=== PATIENT | female | born 1955 | race Caucasian/White ===

== ENCOUNTER 2016-12-11 23:19 | Emergency (ER) | payer BC ==
[2016-12-11 23:23] VITALS: BP 132/69; PULSE 82; TEMP 98; BMI 30.9
--- NOTE | 2016-12-11 23:40 | PDOC ---
History of Present Illness - General Chief Complaint: Foreign Body (FB) Stated Complaint: "I STEPPED ON A PATRICA PIN" Time Seen by Provider: 12/11/16 23:23 - History of Present Illness Initial Comments: This 61-year-old woman, otherwise healthy, presents with puncture wound to the plantar aspect of her left foot. The patient was ending her vacation in [place] earlier today when she stepped on a "patrica pin", that was positioned upright in the carpet of her hotel room. Patient was barefoot as she came out of the bathroom when she stepped on the pin. The pin was lodged in her skin but she was able to remove it intact. She then returned home by airplane. This evening, she thought that her foot appeared somewhat swollen and she has some pain with weightbearing in the area of the wound. Patient denies immunocompromise/wound healing problems. She has no history of diabetes mellitus or colonization/infection with resistant organisms. Patient cannot recall most recent tetanus prophylaxis Past History - Past Medical History Allergies/Adverse Reactions: Allergies Allergy/AdvReac Type Severity Reaction Status Date / Time No Known Allergies Allergy Verified 06/12/12 16:42 Home Medications: Ambulatory Orders No Home Medications 0 dose .ROUTE UTDICT 04/28/13 Asthma: No Cardiac Disorders: No COPD: No Diabetes: No HTN: No Hypercholesterolemia: No - Psycho/Social/Smoking Cessation Hx Anxiety: No Suicidal Ideation: No Smoking Status: No Smoking History: Unknown if ever smoked Have you smoked in the past 12 months: No Number of Cigarettes Smoked Daily: 0 Information on smoking cessation initiated: No Hx Alcohol Use: No Drug/Substance Use Hx: No Substance Use Type: None Review of Systems - Review of Systems Able to Perform ROS?: Yes Comments:: 12 point review of systems is negative except for what is noted in the history of present illness *Physical Exam - Vital Signs Last Vital Signs Temp Pulse Resp BP Pulse Ox 98.0 F 82 14 132/69 98 12/11/16 23:20 12/11/16 23:20 12/11/16 23:20 12/11/16 23:20 12/11/16 23:20 - Physical Exam Comments: GENERAL: The patient is awake, alert, and fully oriented HEAD: Normal with no signs of trauma. EYES: Pupils equal, round and reactive to light, extraocular movements intact, sclera anicteric, conjunctiva clear with no pallor. ENT: moist mucous membranes. Ears normal, nares patent, oropharynx clear without exudates. NECK: Normal range of motion, supple without lymphadenopathy, JVD, or masses. EXTREMITIES: Normal range of motion, no edema. No clubbing or cyanosis. No cords, erythema, or tenderness left foot, plantar aspect2 minute puncture wounds,nonbleeding and mildly tender, at central metatarsal area no palpable foreign body, no fluctuance, no erythema or significant edema Remainder of extremity exam is normal. NEUROLOGICAL: Cranial nerves II through XII grossly intact. Normal speech, normal gait. PSYCH: Normal mood, normal affect. SKIN: Warm, Dry, normal turgor, no rash noted. Medical Decision Making - Medical Decision Making This otherwise healthy 61-year-old woman presents with a puncture wound of the plantar metatarsal area of her left foot. Exam as noted above, minute wounds that are nonbleeding without significant inflammation or signs of infection. Wounds cleansed with Hibiclens/ethanol solution, followed by sterile saline; bacitracin and sterile dressing applied. Tetanus booster(Boostrix) administered Since the patient has no previous history of wound healing difficulties or resistant organism colonization/infection, no indication for antibiotic therapy at this time. Patient should continue to monitor the area and return to the ER or see her doctor if area becomes more painful/more erythematous/more edematous. In any case, she should schedule appointment with her PMD within the next 5 days. *DC/Admit/Observation/Transfer Diagnosis at time of Disposition: Puncture wound of foot Qualifiers: Encounter type: initial encounter Laterality: left Qualified Code(s): S91.332A - Puncture wound without foreign body, left foot, initial encounter - Discharge Dispostion Disposition: HOME Condition at time of disposition: Stable - Patient Instructions Printed Discharge Instructions: DI for Puncture Wound Additional Instructions: elevate left leg for the next 2 days return if pain persists for more than 3 days return if area becomes more swollen or red followup with your doctor within 5-7 days as discussed
[2016-12-11] MEDS ORDERED: DIPHTH,PERTUSS(ACELL),TET 0.5 ML DISP.SYRIN IM ONE (23:41)
== END 2016-12-11 23:54 | disposition home or self-care (01) ==
LOC: FER 23:19
PROC: 3E0234Z Introduction of Serum, Toxoid and Vaccine into Muscle, Percutaneous Approach (ICD-10-PCS; principal; 2016-12-11)
DX: S91.332A Puncture wound without foreign body, left foot, initial encounter (principal); W22.8XXA Striking against or struck by other objects, initial encounter; Y93.89 Activity, other specified; Y92.89 Other specified places as the place of occurrence of the external cause
CPT/HCPCS: 90715; 99282-25